=== PATIENT | female | born 1960 | race Caucasian/White ===

== ENCOUNTER 2025-06-15 12:48 | Outpatient (REF) | payer MEDICARE, SELFPAY | END 2025-06-15 12:49 | disposition home or self-care (01) | LOC: HO.HKASLDS 12:48 | PROVIDERS: PCP Physician Assistant; Visit Provider Student in an Organized Health Care Education/Training Program | DX: Z76.89 Persons encountering health services in other specified circumstances (principal); E04.9 Nontoxic goiter, unspecified; B00.9 Herpesviral infection, unspecified; Z13.1 Encounter for screening for diabetes mellitus; Z13.220 Encounter for screening for lipoid disorders; I10 Essential (primary) hypertension; L85.3 Xerosis cutis; E66.811 Obesity, class 1; I47.10 Supraventricular tachycardia, unspecified; Z01.89 Encounter for other specified special examinations; Z13.89 Encounter for screening for other disorder ==

== ENCOUNTER 2025-06-15 12:48 | Outpatient (AMB) | payer MEDICARE, SELFPAY ==
--- NOTE | 2025-06-15 13:08 | A.OFFPC_ITS ---
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 pt request LAB work. lose toe nail in right foot. gets a lot of UTI. Route Delivery Driver Required: No Accompanied by: Self / Same As Patient Allergies codeine Allergy (Mild, Verified 06/15/25 13:17) Rash Penicillins Allergy (Mild, Verified 06/15/25 13:17) Rash Tobacco use date assessed: 06/15/25 Fall risk assessment: No Falls in past year Last assessed Fall Risk: 06/15/25 Dental Screening Dental Screen Date: 06/15/25 Did you have a dental visit in the last 12 months?: No Did you have a dental problem in the last 6 months where you did not have access to dental care?: No Was dental information given to patient?: No HPI HPI Comments History of Present Illness Details History of Present Illness The patient is a 65-year-old female presenting for a physical examination and management of her goiter. Goiter: - The patient reports a large goiter in her neck, requiring evaluation with blood work and ultrasound. - She is currently taking 88 mcg of levo thyroxine but suspects the dose may be too high, causing heart palpitations. - She has a history of thyroid nodule an d declined previous intervention but now requests an ultrasound. Hypertension: - The patient has a history of hypertens ion managed with hydrochlorothiazide 25 mg daily. Supraventricular Tachycardia (SVT): - The patient experiences SVT and is man aged with metoprolol 50 mg twice daily. - She has not seen her sand sifter in a year but has an upcoming appointment. Herpes Simplex Virus Infection: - The patient reports recurrent herpes s implex virus outbreaks affecting her lips and eyes, managed with acyclovir as needed. Fungal Nail Infection: - The patient has a fungal nail infectio n treated previously with oral medication, which caused migraines, leading to discontinuation. Health Maintenance - Blood work including CBC, CMP, lipid p romelia, hemoglobin A1c, TSH, and T4 ordered. - Thyroid ultrasound requested for goite r evaluation. - Discussion on shingles vaccine, advise d due to age. Review of Systems - Endocrine: Reports large goiter, heart palpitations possibly due to levothyroxine dose. - Cardiovascular: Reports supraventricul ar tachycardia, managed with metoprolol. - Dermatological: Reports recurrent herp es simplex virus outbreaks on lips and eyes. - Musculoskeletal: Reports knee pain, hi story of carpal tunnel syndrome and ganglion cyst. - Neurological: Denies current migraines . - Gastrointestinal: Reports hemorrhoids, managed with stool softeners. - Genitourinary: Reports microscopic hem aturia. - Integumentary: Reports fungal nail inf ection, previously treated with oral medication. 10-point ROS reviewed and negative excep t as noted in HPI Allergies Medications - Levothyroxine 88 mcg daily for thyroid management - Metoprolol 50 mg twice daily for supra ventricular tachycardia - Hydrochlorothiazide 25 mg daily for hy pertension - Acyclovir as needed for herpes simplex virus outbreaks Medication History - Levothyroxine: Previously on 100 mcg, reduced due to heart palpitations and SVT. - Oral antifungal medication: Discontinu ed due to migraine side effects. Current Substance Use Substance Use History Past Medical History - Thyroid nodule - Hypertension - Supraventricular tachycardia - Carpal tunnel syndrome - Ganglion cyst of the right foot - Knee pain - Microscopic hematuria - Herpes simplex virus infection - Migraine - Hemorrhoids - Fungal nail infection Past Surgical History Family History Social History - The patient is and has been wi th her for 40 years. - Reports financial difficulties and nazario ited access to resources. - Previously worked long hours in [employer], performing physically demanding tasks. Physical Exam General: No apparent distress. Alert and oriented x 3. Head: Normocephalic, atraumatic Eyes: Pupils equal, round, and reactive to light. Extraocular movements intact Throat: No abnormalities observed. ropharynx clear. Mucus membranes moist Neck: Supple. Large goiter present. eft anterior descending artery distention. No jugular vein distention. No bruit. Cardiovascular: Regular rate and rhythm. Normal S1 and S2. No murmurs. murmurs, rubs, or gallops Lungs: Clear to auscultation bilaterally. Breath sounds equal bilaterally. No rales, ronchi, or wheezes. Abdomen: Non-tender. Non-distended. Bowel sounds auscultated. Echymosis on the left side of the abdomen. No pain on palpation. hepatosplenomegaly. No mass/rebound/guarding Extremities: No cyanosis, clubbing, or edema. No swelling of the lower extremities. lubbing, cyanosis, and edema. 2+ pulses Neuro: Central nerves II-XII grossly intact. Motor/sensory intact. Reflexes 2+. Gait normal. Skin: Warm, dry, and intact. No rash. Dry skin noted. Lac hydrants lotion recommended. Discussion Notes During the visit, I discussed the importance of evaluating the patient's goiter with a thyroid ultrasound and blood work, including TSH and T4 levels. We also addressed her concerns about the current levothyroxine dosage and potential side effects, such as heart palpitations. I recommended considering a shingles vaccin e due to her age and explained the benefits of preventing severe complications. We reviewed her medication regimen, including the need for acyclovir for herpes outbreaks and the management of hypertension and SVT with hydrochlorothiazide and metoprolol, respectively. I emphasized the importance of follow-up with her sand sifter and the need for regular health maintenance screenings. Plan 1. Goiter - Plan to perform a thyroid ultrasound a nd check TSH and T4 levels to assess the goiter and adjust levothyroxine dosage if necessary. 2. Hypertension - Continue hydrochlorothiazide 25 mg jalen ly for blood pressure management. 3. Supraventricular Tachycardia (Svt) - Continue metoprolol 50 mg twice daily and follow up with sand sifter for ongoing management. 4. Herpes Simplex Virus Infection - Prescribe acyclovir for outbreak manag ement and advise on stress reduction to prevent recurrences. 5. Fungal Nail Infection - Consider re-evaluation of oral antifun gal treatment, monitoring for side effects such as migraines. Treatment Summary Anticapatory Guidance Patient Instructions - Schedule a thyroid ultrasound and comp lete blood work as ordered. - Continue taking prescribed medications : levothyroxine, metoprolol, hydrochlorothiazide, and acyclovir as needed. - Follow up with your sand sifter as pl anned. - Consider receiving the shingles vaccin e at a local pharmacy or clinic. - Use lotion for dry skin as recommended . REPLACED BY [facility] Family History (Updated 06/15/25 @ 13:22 by Espinoza Melton MA) Father No problems noted. Mother No problems noted. Social History (Updated 06/15/25 @ 13:23 by Espinoza Melton MA) Housing: House Alcohol intake: current Alcohol intake frequency: does not drink Patient Tobacco Use Status: Never used Tobacco service: No Current occupational status: unemployed Cognitive needs: No Hearing needs: No Vision needs: Yes (rx glasses) Questionnaire PHQ-9 Over the last 2 weeks, how often have you been bothered by any of the following problems? 1. Little interest or pleasure in doing things: not at all 2. Feeling down, depressed, or hopeless: not at all 3. Trouble falling or staying asleep, or sleeping too much: not at all 4. Feeling tired or having little energy: not at all 5. Poor appetite or overeating: not at all 6. Feeling bad about yourself - or that you are a failure or have let yourself or your family down: not at all 7. Trouble concentrating on things, such as reading the newspaper or watching television: not at all 8. Moving or speaking so slowly that other people could have noticed. Or the opposite - being so fidgety or restless that you have been moving around a lot more than usual: not at all 9. Thoughts that you would be better off or of hurting yourself in some way: not at all Total score: 0 Source: Developed by Drs. Hu Jackson, Frida Bravo, Jv Monterroso and colleagues, with an educational valentina from [employer]. Thrive Questionnaire Date Thrive assessed: 06/15/25 I am a: Patient What is your living situation today?: I have a steady place to live Within the past 12 months, did the food you bought not last and you didn't have the money to get more?: Never true Within the past 12 months, did you worry whether your food would run out before you got money to buy more?: Never true Do you have trouble paying for medicines?: No Do you have trouble getting transportation to medical appointments?: No Do you have trouble paying your heating and electricity bill?: No Do you have trouble taking care of your child, family member or friend?: No Are you currently unemployed and looking for a job?: Yes Are you interested in more education?: No Please select the resources that you would like help with: None Currently or been in a relationship where the following occur: No concerns reported THRIVE Score: 0 AUDIT C Alcohol Use Questionnaire (AUDIT-C) 1. How often do you have a drink containing alcohol?: Never 3. How often do you have six or more drinks on one occasion?: Never Total Score: 0 TARA-7 AMB Questionnaire TARA-7 Date TARA - 7 assessed: 06/15/25 Feeling nervous, anxious, or on edge: 0 = Not at all Not being able to stop or control worryin = Not at all Worrying too much about different things: 0 = Not at all Trouble relaxin = Not at all Being so restless that it is hard to sit still: 0 = Not at all Becoming easily annoyed or irritable: 0 = Not at all Feeling afraid as if something awful might happen: 0 = Not at all Total TARA-7 score (0-4 normal; 5-9 mild; 10-14 moderate; 15-21 severe): 0 Source: Developed by Drs. Hu Jackson, Frida Bravo, Jv Monterroso and colleagues, with an educational valentina from [employer]. Physical exam (Primary Care) Vital Signs: Last Vital Signs Temp 97.3 F 06/15/25 13:23 Pulse 66 06/15/25 13:23 Resp 16 06/15/25 13:23 BP 156/86 H 06/15/25 13:23 Pulse Ox 97 06/15/25 13:23 Oxygen Delivery Method Room Air 06/15/25 13:23 BMI result Body Mass Index 32.6 Tobacco/Smoking Status: Tobacco use Status Tobacco use date assessed 06/15/25 06/15/25 13:14 Patient Tobacco Use Status Never used Tobacco 06/15/25 13:23 PHQ-9: PHQ-9 Score PHQ-9: Total score 0 06/15/25 13:14 Thrive Assessment: Date of Thrive Assessment Date Thrive assessed 06/15/25 06/15/25 13:14 Currently or been in a relationship where the following occur: No concerns reported Coding Level of Care Code New Pt Level 3 (52898) Diagnoses Encounter to establish care Z76.89 Goiter E04.9 Herpes simplex B00.9 Screening for diabetes mellitus Z13.1 Screening for lipoid disorders Z13.220 Primary hypertension I10 Hypertension type: primary hypertension Dry skin L85.3 Class 1 obesity E66.811 SVT (supraventricular tachycardia) I47.10 Routine lab draw Assessment & Plan Assessment & Plan (1) Encounter to establish care: Code(s): Z76.89 - Persons encountering health services in other specified circumstances (2) Goiter: Code(s): E04.9 - Nontoxic goiter, unspecified (3) Herpes simplex: Code(s): B00.9 - Herpesviral infection, unspecified (4) Screening for diabetes mellitus: Code(s): Z13.1 - Encounter for screening for diabetes mellitus (5) Screening for lipoid disorders: Code(s): Z13.220 - Encounter for screening for lipoid disorders (6) Hypertension: Code(s): I10 - Essential (primary) hypertension Qualifiers: Hypertension type: primary hypertension Qualified Code(s): I10 - Essential (primary) hypertension (7) Dry skin: Code(s): L85.3 - Xerosis cutis (8) Class 1 obesity: Code(s): E66.811 - Obesity, class 1 (9) SVT (supraventricular tachycardia): Code(s): I47.10 - Supraventricular tachycardia, unspecified (10) Routine lab draw: Code(s): Z. - Encounter for other specified special examinations Plan Orders: Orders Comprehensive Met. Panel Today - Persons encountering health services in other specified circumstances Hemoglobin A1c Today - Persons encountering health services in other specified circumstances Hepatitis B Surface Antibody Today - Persons encountering health services in other specified circumstances TSH reflex Free T4 Today - Persons encountering health services in other specified circumstances UA CC w/rflx Micro + Cult Today - Persons encountering health services in other specified circumstances US thyroid Today E04.9 - Nontoxic goiter, unspecified, Z - Persons encountering health services in other specified circumstances Complete Blood Count Auto Diff Today - Persons encountering health services in other specified circumstances Hepatitis B Surface Antigen Today . - Persons encountering health services in other specified circumstances Hepatitis C Antibody Today . - Persons encountering health services in other specified circumstances HIV Ab/Ag Today Z76.89 - Persons encountering health services in other specified circumstances Lipid Panel Today Z - Persons encountering health services in other specified circumstances Magnesium Today Z. - Persons encountering health services in other specified circumstances Microalbumin, Random (w Creat) Today Z - Persons encountering health services in other specified circumstances Vitamin D 1,25 dihydroxy Today Z - Persons encountering health services in other specified circumstances Medications: New acyclovir 200 mg PO TID PRN 30 caps 0RF herpes break out hydrochlorothiazide 25 mg PO DAILY 30 tabs 2RF ammonium lactate 5% (Lac-Hydrin Five) 1 appl topical DAILY 226 grams 2RF metoprolol tartrate 50 mg PO BID 60 tabs 2RF
[2025-06-15 13:23] VITALS: BP 156/86; PULSE 66; RESP 16; TEMP 36.3; O2SAT 97; BMI 32.6
--- OUTSIDE RECORDS SUMMARY | 2025-06-15 15:49 | XMS_ITS | Encounter Summary ---
Author Organization [facility] Address [address] [place] [address] Care Team Providers Care Program Checker Name Role Phone Connor Garcia MD Primary Care Provider [phone] Encounter Details Date Type Department Care Team (Late st Contact Info) Description 02/11/2022 Scanned Document [facility] PRIMARY CARE SCAN Primary Care, Scan Social History Tobacco Use Types Packs/Day Years Used Date Smoking Tobacco: Never Assessed Comments Unknown Sex and Gender Information Value Date Recorded Sex Assigned at Female 12/07/2023 2:42 PM EST Legal Sex Female 10:47 AM EDT Gender Identity Not on file Sexual Orientation Not on file documented as of this encounter Plan of Treatment Not on file documented as of this encounter Visit Diagnoses Not on filedocumented in this encounter Care Teams Program Checker Relationship Specialty Start Date End Date Connor Garcia MD [address] [place] [address] PCP - General Internal Medicine 02/11/22 documented as of this encounter
--- OUTSIDE RECORDS SUMMARY | 2025-06-15 15:49 | XMS_ITS | Clinical Summary ---
Author Organization [facility] Address [address] [place] [address] Care Team Providers Care Retreader Name Role Phone Connor Garcia MD Primary Care Provider [phone] Social History Tobacco Use Types Packs/Day Years Used Date Smoking Tobacco: Never Assessed Comments Unknown Sex and Gender Information Value Date Recorded Sex Assigned at Female 12/07/2023 2:42 PM EST Legal Sex Female 10:47 AM EDT Gender Identity Not on file Sexual Orientation Not on file Plan of Treatment Health Maintenance Due Date Last Done Comments Hepatitis C Virus Screening 1961 HIV Screening 1974 DTaP/Tdap/Td Vaccines (1 - Tdap) 1980 Pap Smear (Ages 21-65) 1982 Mammogram 2001 Colonoscopy 2006 Pneumococcal Vaccines 50+ (1 of 1 - PCV) 2011 Zoster (Shingles) Vaccine (1 of 2) 2011 Influenza Vaccine 05/06/2025 COVID-19 Vaccine (4 - 2024-2 6 season) 2025 09/06/2021, 02/14/2021, 01/16/2021 RSV Vaccine 60 years and older and Patients (1 - 1-dose 75+ series) 2036 Hepatitis B Vaccines Aged Out No long er eligible based on patient's age to complete this topic Insurance MEDICARE PART A & B Care Teams Retreader Relationship Specialty Start Date End Date Connor Garcia MD [address] [place] [address] PCP - General Internal Medicine 02/11/22
--- OUTSIDE RECORDS SUMMARY | 2025-06-15 15:50 | XMS_ITS | Clinical Summary ---
Author Organization [address] [place] [address] Phone Care Team Providers Care Government Services Professional Name Role Phone Connor Garcia MD Primary Care Provider [phone] Surgical History Surgery Date Site/Laterality Comments OTHER SURGICAL HISTORY PROCEDURE: [place] ENDOMETRIAL BX W/WO ENDOCERVIX BX W/O DILAT SPX HYSTERECTOMY PROCEDURE: HISTORICAL HYSTERECTOMY; COMMENT: at age 54 Medical History Medical History Date Comments HTN (hypertension) DX:HTN (hyper tension) SVT (supraventricular tachyc ardia) (CMS/HCC V24) DX:SVT (supraventricular tac hycardia) (HCC); COMMENT: metoprolol Menorrhagia DX:Menorrhagia 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:Unabl e to read or write Family History Medical History Relation Name Comments Other: alive and well Father Other: alive and well Mother Relation Name Status Comments Father Mother Social History Tobacco Use Types Packs/Day Years Used Date Smoking Tobacco: Never Smokeless Tobacco: Never Alcohol Use Standard Drinks/Week Comments No 0 (1 standard drink = 0.6 oz pur e alcohol) Comments Unknown Sex and Gender Information Value Date Recorded Sex Assigned at Female 10/19/2024 4:50 PM EST Legal Sex Female 6:33 PM EST Gender Identity Female 10/19/2024 4:50 PM EST Sexual Orientation Straight 10/19/2024 4: 50 PM EST Obstetrics History Last Filed Vital Signs Vital Sign Reading Time Taken Comments Blood Pressure 180/90 03/04/2023 8:55 AM EDT Sitting L Arm Pulse 56 03/04/2023 8:55 AM EDT Temperature - - Respiratory Rate - - Oxygen Saturation - - Inhaled Oxygen Concentration - - Weight 72.8 kg (160 lb 6.4 oz) 03/04/2023 8:55 AM EDT Height 162.6 cm (5' 4 ) 03/04/2023 8:55 AM EDT Body Mass Index 27.53 03/04/2023 8:55 AM EDT Plan of Treatment Health Maintenance Due Date Last Done Comments Breast Cancer Screening 1961 DTaP,Tdap,and Td Vaccines (1 - Tdap) 1980 Cervical Cancer Screening: P ap Smear 1982 Pneumococcal Vaccine: 50+ Ye ars (1 of 1 - PCV) 2011 Zoster Vaccines (1 of 2) 2011 Cholesterol Screening (Lipid Panel) 09/12/2022 Colorectal Cancer Screening: Stool Based Tests (FOBT/FIT) 09/12/2022 HIV Screening 09/12/2022 Hepatitis C Screening 09/12/2022 Medicare Annual Wellness Visit 09/12/2022 Social Influencers of Health Screening 09/12/2022 Hypertension/CHF/CAD Annual BMP Blood Test 09/15/2022 Depression Screening 10/06/2024 COVID-19 Vaccine (1 - 2023-2 5 season) 2025 Influenza Vaccine (#1) 2025 RSV Immunization Adult Patie nts (1 - 1-dose 75+ series) 2036 HIB Vaccines Aged Out No longer eligi ble based on patient's age to complete this topic HPV Vaccines Aged Out No longer eligi ble based on patient's age to complete this topic Hepatitis A Vaccines Aged Out No long er eligible based on patient's age to complete this topic Hepatitis B Vaccines Aged Out No long er eligible based on patient's age to complete this topic IPV Vaccines Aged Out No longer eligi ble based on patient's age to complete this topic MMR Vaccines Aged Out No longer eligi ble based on patient's age to complete this topic Meningococcal ACWY Vaccine Aged Out N o longer eligible based on patient's age to complete this topic Meningococcal B Vaccine Aged Out No l onger eligible based on patient's age to complete this topic RSV Immunization Patients Un chao 20 months Aged Out No longer eligible b ased on patient's age to complete this topic Varicella Vaccines Aged Out No longer eligible based on patient's age to complete this topic Insurance MEDICARE Care Teams Government Services Professional Relationship Specialty Start Date End Date Connor Garcia MD [address] [place] [address] PCP - General 07/19/24
--- OUTSIDE RECORDS SUMMARY | 2025-06-15 15:50 | XMS_ITS | Clinical Summary ---
Author Organization [facility] Address [address] [place] [address] Care Team Providers Care Vest Maker Name Role Phone Connor Garcia MD Primary Care Provider [phone] Allergies Active Allergy Reactions Criticality Noted Date Comments Ampicillin Rash Low 10/20/2020 Codeine Rash Low 10/20/2020 Penicillins Rash Low 10/20/2020 Medications Medication Sig Dispensed Refills Start Date End Date Status lisinopril (PRINIVIL,ZESTRIL) tablet 5 mg Take 5 mg by mouth daily. 0 Active hydroCHLOROthiazide (HYDRODIURIL) tablet 25 mg Take 25 mg by mouth daily. 0 Active metoprolol succinate (TOPROL-XL) 24 hr tablet 50 mg Take by mouth daily. 0 Active cyclobenzaprine (FLEXERIL) 5 MG tablet 1-2 tabs PO QHS PRN for muscle spasm 14 tablet 0 11/07/2020 Active meloxicam (MOBIC) 7.5 MG tablet Take 1 tablet (7.5 mg total) by mouth daily. With food 30 tablet 0 11/13/2020 Active Active Problems Problem Noted Date Diagnosed Date Acute pain of right shoulder 11/13/2020 Right arm pain 10/20/2020 Primary osteoarthritis of right knee 10/20/2020 Social History Tobacco Use Types Packs/Day Years Used Date Smoking Tobacco: Never Smokeless Tobacco: Never Alcohol Use Standard Drinks/Week Comments No 0 (1 standard drink = 0.6 oz pur e alcohol) Sex and Gender Information Value Date Recorded Sex Assigned at Female 09/24/2018 3:16 PM EST Gender Identity Female 09/24/2018 3:16 PM EST Sexual Orientation Not on file Job Start Date Occupation Industry Not on file Not on file Not on file Last Filed Vital Signs Vital Sign Reading Time Taken Comments Blood Pressure - - Pulse - - Temperature 35.9 C (96.7 F) 12/04/2020 11:21 AM EST Respiratory Rate - - Oxygen Saturation - - Inhaled Oxygen Concentration - - Weight 74.8 kg (165 lb) 12/04/2020 11:21 AM EST Height 162.6 cm (5' 4 ) 12/04/2020 11:21 AM EST Body Mass Index 28.32 12/04/2020 11:21 AM EST Plan of Treatment Health Maintenance Due Date Last Done Comments Hepatitis C Screening 1961 COVID-19 Vaccine (#1) 1961 Depression Screening 1973 Preventative Health Evaluation 1979 Cervical Cancer Screening (Pap Smear) 1982 Colon Cancer Screening (Colonoscopy) 2006 Breast Cancer Screening (Mammogram) 2011 Shingrix-Zoster Vaccine (1 of 2) 2011 DTap / Tdap / Td (1 - Tdap) 11/03/2018 11/02/2018 BMI Counseling 12/04/2021 12/04/2020, 02/0 05/2021, 10/26/2020, Additional history exists Influenza Vaccine (#1) 2025 Pneumococcal Vaccine (1 of 1 - PCV) 2026 RSV Adult > 60+ Yrs or (1 - 1-dose 75+ series) 2036 Hepatitis B Vaccines Aged Out No long er eligible based on patient's age to complete this topic Pneumococcal Vaccine Aged Out No long er eligible based on patient's age to complete this topic RSV Ped < 20 months Aged Out No longe r eligible based on patient's age to complete this topic Advance Directives For more information, please contact: [phone] Documents on File Type Date Recorded Patient Gold Leaf Printer Expl anation Advance Directive and Living Will 11/02/2020 12:13 PM Care Teams Vest Maker Relationship Specialty Start Date End Date Connor Garcia MD [address] [place] [address] PCP - General Internal Medicine 09/24/18
--- OUTSIDE RECORDS SUMMARY | 2025-06-15 15:50 | XMS_ITS ---
Author Name [facility] Organization Unknown History of Medication Use Medication Directions Dispensed Refills Start Date End Date Stat us hydroCHLOROthiazide (HYDRODIURIL) tablet 25 mg Take 25 mg by mouth daily. active lisinopril (PRINIVIL,ZESTRIL) tablet 5 mg Take 5 mg by mouth daily. active metoprolol succinate (TOPROL-XL) 24 hr tablet 50 mg Take by mouth daily. active Allergies Allergen Reaction Severity Comment Documented Date Source Statu s PENICILLINS RASH 10/20/2020 [facility] active AMPICILLIN RASH [facility] CODEINE RASH [facility] Problems Problem Status Onset Date Problem Type Date of Resolution Source Localized swelling of both lower extremities active EncounterDiagnosisAct [facility] Acute pain of right shoulder active 2020-11-13 ProblemAct [facility] Primary osteoarthritis of right knee active 2020-10-20 ProblemAct [facility] Leg pain, left active EncounterDiagnosisAct [facility] Right arm pain active 2020-10-20 ProblemAct [facility] Encounters Encounter Type Encounter Reason Primary Diagnosis Location Date Ambulatory [facility] 06/13/2025 Ambulatory [facility] 06/13/2025 Ambulatory [facility] 01/18/2025 Ambulatory Hematuria, unspecified Hematuria, unspecified [facility] 07/29/2024 Ambulatory Hematuria, unspecified Hematuria, unspecified [facility] 07/29/2024 Ambulatory Other specified soft tissue disorders Other specified soft tissue disorders [facility] 07/29/2024 Ambulatory Other specified soft tissue disorders Other specified soft tissue disorders [facility] 07/29/2024 Ambulatory Hematuria, unspecified Hematuria, unspecified [facility] 07/29/2024 Ambulatory Hematuria, unspecified Hematuria, unspecified [facility] 07/29/2024 Ambulatory Synovial cyst of popliteal space (Dong), left knee Synovial cyst of popliteal space (Dong), left knee [facility] 01/08/2024 Care Team Organization Name Specialty Phone Email Start Date End Da te [facility] ARTEM, Primary Care 08/13/2024 [facility] ARTEM Primary Care 01/11 [facility] 01/08/2024 04/19/2025 [facility] CITLALY MCGILL, Primary Care 12/05/2023 [facility] CITLALY SHAH, Primary Care
== END 2025-06-15 15:17 | disposition home or self-care (01) ==
PROVIDERS: PCP Student in an Organized Health Care Education/Training Program; Visit Provider Student in an Organized Health Care Education/Training Program
DX: E04.9 Nontoxic goiter, unspecified (principal); B00.9 Herpesviral infection, unspecified; L85.3 Xerosis cutis; I47.10 Supraventricular tachycardia, unspecified; E66.811 Obesity, class 1; Z68.32 Body mass index [BMI] 32.0-32.9, adult

== ENCOUNTER 2025-06-15 14:37 | Outpatient (REF) | payer MEDICARE, SELFPAY ==
[2025-06-15 18:15] LABS: MANUAL DIFF FLAG NO
[2025-06-15 18:38] LABS: Hematocrit 38.8 % (37.0-47.0); Hemoglobin 13.2 g/dl (12.0-16.0); Imm Gran Abs Auto 0.02 X10*3/uL (0.00-0.03); Imm Gran Pct Auto 0.3 % (0.0-0.4); Lymphocytes Absolute Auto 3.1 X10*3/uL (1.2-4.9); Mean Corpuscular HGB Conc 34.0 g/dl (31.0-35.0); Mean Corpuscular Hemoglobin 29.3 pg (27.0-33.0); Mean Corpuscular Volume 86.2 fL (80.0-98.0); NRBC Abs Auto 0.000 X10*3/uL (0.0-0.012); NRBC Pct Auto 0.0 /100WBC (0.0-0.2); Platelet Count 217 X10*3/uL (160-400); Red Blood Count 4.50 X10*6/uL (4.20-5.50); White Blood Count 6.5 X10*3/uL (4.8-10.8)
[2025-06-15 18:40] LABS: Appearance Urine Clear; Glucose Urine UA Negative (Negative); PH 6.0 (5.0-9.0); Specific Gravity - Urine 1.015 (1.005-1.025)
[2025-06-15 18:49] LABS: Alanine Aminotransferase 23 U/L (0-31); Albumin Level 4.3 g/dL (3.5-5.0); Alkaline Phosphatase 58 U/L (39-117); Anion Gap 12 (12-20); Aspartate Amino Transferase 27 U/L (5-31); Blood Urea Nitrogen 12 mg/dL (9-16); Calcium 9.0 mg/dL (8.4-10.2); Carbon Dioxide 28 mmol/L (22-29); Chloride 105 mmol/L (96-108); Cholesterol 228 mg/dL (<200); Estimated Glomerular Filt Rate > 60; HDL Cholesterol 60 mg/dL (>40); Magnesium 2.2 mg/dL (1.6-2.6); Potassium 3.7 mmol/L (3.3-5.1); Sodium 141 mmol/L (135-145); Total Protein 7.4 g/dL (6.5-8.0); Triglycerides 89 mg/dL (<150)
[2025-06-15 19:56] LABS: Free T4 (Free Thyroxine) 1.40 ng/dL (0.71-1.85)
[2025-06-16 07:32] LABS: Hemoglobin A1C 139.6487 umol/L; Total Hemoglobin (HGBA1C) 3406.7187 umol/L
[2025-06-16 08:56] LABS: HBS Num1 0.00 mIU/mL (0-7.99); HBsAGNum1 0.47 S/CO (0.00-0.99); HIV Num 1 0.05 S/CO (0.00-0.99); Hepatitis B Surface Antigen Negative (Negative); ~HepC Num1 0.09 S/CO (0.00-0.79); ~Hepatitis B Surface Antibody NONREACTIVE (Nonreactive); ~Hepatitis C Antibody Nonreactive (Nonreactive)
[2025-06-19 09:39] LABS: VITAMIN D (1,25 OH) D3 47 pg/mL; Vit D (1,25-Dihydroxy) Total 47 pg/mL (18-72); Vitamin D (1,25 OH) D2 <8 pg/mL
== END 2025-06-15 14:38 | disposition home or self-care (01) ==
LOC: HO.HKASLDS 14:37
PROVIDERS: Visit Provider Student in an Organized Health Care Education/Training Program
DX: Z11.4 Encounter for screening for human immunodeficiency virus [HIV] (principal); Z76.89 Persons encountering health services in other specified circumstances; Z13.1 Encounter for screening for diabetes mellitus; Z13.6 Encounter for screening for cardiovascular disorders; Z13.29 Encounter for screening for other suspected endocrine disorder; Z13.21 Encounter for screening for nutritional disorder
CPT/HCPCS: 36415; 80053; 80061; 81003; 82570; 82652; 83036; 83735; 84439; 84443; 85025; 86706; 86803; 87340; 87389

== ENCOUNTER 2025-07-11 09:17 | Outpatient (AMB) | payer MEDICARE, SELFPAY ==
[2025-07-11 09:21] VITALS: BP 156/76; PULSE 64; RESP 16; TEMP 36.4; O2SAT 98; BMI 31.4
--- NOTE | 2025-07-11 09:21 | A.OFFPC_ITS ---
Vital Signs 07/11/25 09:21 Height 4 ft 9.09 in Weight 145 lb 6 oz BMI 31.4 BP 156/76 H Blood Pressure Location Lt brachial Position Sitting Respiration 16 Pulse 64 Pulse Source Pulse Oximeter Temp 97.5 F Temp Source Oral Pulse Oximetry (%) 98 Oxygen Delivery Method Room Air Intake Visit Reasons: follow up u/s -patient req this day Intake Note: pt medication request, physical, lump on neck. pt request LAB work. lose toe nail in right foot. gets a lot of UTI. Supervisor Riprap Placing Required: No Accompanied by: Self / Same As Patient Allergies codeine Allergy (Mild, Verified 06/15/25 13:17) Rash Penicillins Allergy (Mild, Verified 06/15/25 13:17) Rash Tobacco use date assessed: 06/15/25 Fall risk assessment: No Falls in past year Last assessed Fall Risk: 06/15/25 Dental Screening Dental Screen Date: 06/15/25 Did you have a dental visit in the last 12 months?: No Did you have a dental problem in the last 6 months where you did not have access to dental care?: No Was dental information given to patient?: No HPI HPI Comments History of Present Illness Details History of Present Illness The patient is a 65-year-old female presenting with management of thyroid issues, hypertension, hyperlipidemia, and a urinary tract infection. Supraventricular Tachycardia (SVT): - The patient has a history of supravent ricular tachycardia, which is managed with metoprolol to control heart rate. Thyroid Nodule: - The patient has a thyroid nodule and i s awaiting an ultrasound scheduled for next week. Subclinical Hyperthyroidism: - The patient is diagnosed with subclini evan hyperthyroidism, indicated by a low TSH level of 0.04 with normal free T4. - She is currently on 88 mcg of levothyr oxine, which will be reduced to 75 mcg. Hypertension: - The patient has elevated blood pressur e readings, with recent measurements of 156/86 and 156/76. - She is currently on hydrochlorothiazid e and metoprolol for management. Hyperlipidemia: - The patient's total cholesterol is 228 mg/dL, and LDL is 151 mg/dL, indicating hyperlipidemia. - She has been advised to see a [facility] for lifestyle modifications. Urinary Tract Infection: - The patient reports sharp pains during urination, starting at 3 AM, indicative of a urinary tract infection. - She has a history of recurrent urinary tract infections, possibly related to hot tub use. Kidney Stones: - The patient has been informed by her O BGYN about the presence of kidney stones, referred to as crystals. Review of Systems - Cardiovascular: Reports elevated blood pressure readings. Denies chest pain or palpitations. - Endocrine: Reports low TSH levels. Den ies symptoms of hyperthyroidism. - Genitourinary: Reports sharp pains dur ing urination and pressure. Denies hematuria. 10-point ROS reviewed and negative excep t as noted in HPI Past Medical History - History of supraventricular tachycardi a managed with metoprolol. - History of thyroid nodule with prior u ltrasound 10 years ago. - History of recurrent urinary tract inf ections. Health Maintenance - Referral to a fretted string instrument repairer for lifesty le modifications due to hyperlipidemia. - Monitoring of blood pressure at home w ith a log for two weeks. Physical Exam General: Well-appearing, in no acute distress. Vital signs: Blood pressure elevated at 156/76 today. HEENT: Normocephalic, atraumatic. PERRLA, EOMI. Conjunctiva clear, sclera anicteric. Oropharynx clear, mucous membranes moist. TMs intact bilaterally. Neck: Supple, no lymphadenopathy, no thyromegaly, no JVD or carotid bruits. Cardiovascular: RRR, normal S1/S2, no murmurs, rubs, or gallops. Peripheral pulses 2+ and symmetric. No edema. Respiratory: Lungs clear to auscultation bilaterally, no wheezes, rales, or rhonchi. Normal effort. Abdomen: Soft, non-tender, non-distended. Normoactive bowel sounds. No hepatosplenomegaly, no masses. MSK: Full range of motion, no joint swelling or deformity. Normal gait. Skin: Warm, dry, intact. No rashes, lesions, or pallor. Neuro: Alert and oriented x3. Cranial nerves II-XII intact. Strength 5/5 throughout. Sensation intact. Reflexes 2+ symmetric. Normal coordination and gait. Psych: Appropriate mood and affect. Normal judgment and insight. Plan 1. Supraventricular Tachycardia (Svt) - Continue metoprolol for heart rate con trol. 2. Thyroid Nodule - Schedule and complete thyroid ultrasou nd next week. 3. Subclinical Hyperthyroidism - Reduce levothyroxine dosage to 75 mcg and repeat labs in six months. 4. Hypertension - Monitor blood pressure at home for two weeks and maintain a log. 5. Hyperlipidemia - Refer to a fretted string instrument repairer for dietary an d lifestyle modifications. 6. Urinary Tract Infection - Prescribe nitrofurantoin for five days and perform urinalysis. 7. Kidney Stones - Monitor for symptoms and manage conser vatively unless symptoms worsen. Discussion Notes I discussed with the patient the management of her subclinical hyperthyroidism, including reducing levothyroxine dosage and repeating labs in six months. We also talked about her elevated cholesterol levels and the importance of lifestyle modifications, referring her to a fretted string instrument repairer. For her urinary tract infection, I prescribed nitrofurantoin and advised a urinalysis. We agreed to monitor her blood pressure at home and maintain a log for two weeks. Patient was informed and verbally consented to the use of an ambient scribe for clinic note documentation during this visit. Patient Instructions - Take nitrofurantoin as prescribed, twi ce daily for five days. - Monitor blood pressure at home twice d aily and record in the provided log. - Attend the scheduled thyroid ultrasoun d next week. - Follow up with a fretted string instrument repairer for diet jose advice. Total time spent caring for the patient today was 30 minutes. This includes time spent before the visit reviewing the chart, time spent documenting, and time spent reviewing laboratory results, medications, performing a medically necessary evaluation, counseling on diagnoses, care coordination, ordering appropriate tests, ordering appropriate medications, reporting test results with the patient. [facility] Medical History (Updated 07/11/25 @ 09:41 by Aneesh Saldana MD) Dyslipidemia Family History Father No problems noted. Mother No problems noted. Social History Housing: House Alcohol intake: current Alcohol intake frequency: does not drink Patient Tobacco Use Status: Never used Tobacco service: No Current occupational status: unemployed Cognitive needs: No Hearing needs: No Vision needs: Yes (rx glasses) Questionnaire PHQ-9 Over the last 2 weeks, how often have you been bothered by any of the following problems? 1. Little interest or pleasure in doing things: not at all 2. Feeling down, depressed, or hopeless: not at all 3. Trouble falling or staying asleep, or sleeping too much: not at all 4. Feeling tired or having little energy: not at all 5. Poor appetite or overeating: not at all 6. Feeling bad about yourself - or that you are a failure or have let yourself or your family down: not at all 7. Trouble concentrating on things, such as reading the newspaper or watching television: not at all 8. Moving or speaking so slowly that other people could have noticed. Or the opposite - being so fidgety or restless that you have been moving around a lot more than usual: not at all 9. Thoughts that you would be better off or of hurting yourself in some way: not at all Total score: 0 Source: Developed by Drs. Hu Jackson, Frida Bravo, Jv Monterroso and colleagues, with an educational valentina from [employer]. Thrive Questionnaire Date Thrive assessed: 06/15/25 I am a: Patient What is your living situation today?: I have a steady place to live Within the past 12 months, did the food you bought not last and you didn't have the money to get more?: Never true Within the past 12 months, did you worry whether your food would run out before you got money to buy more?: Never true Do you have trouble paying for medicines?: No Do you have trouble getting transportation to medical appointments?: No Do you have trouble paying your heating and electricity bill?: No Do you have trouble taking care of your child, family member or friend?: No Are you currently unemployed and looking for a job?: Yes Are you interested in more education?: No Please select the resources that you would like help with: None Currently or been in a relationship where the following occur: No concerns reported THRIVE Score: 0 AUDIT C Alcohol Use Questionnaire (AUDIT-C) 1. How often do you have a drink containing alcohol?: Never 3. How often do you have six or more drinks on one occasion?: Never Total Score: 0 TARA-7 AMB Questionnaire TARA-7 Date TARA - 7 assessed: 06/15/25 Feeling nervous, anxious, or on edge: 0 = Not at all Not being able to stop or control worryin = Not at all Worrying too much about different things: 0 = Not at all Trouble relaxin = Not at all Being so restless that it is hard to sit still: 0 = Not at all Becoming easily annoyed or irritable: 0 = Not at all Feeling afraid as if something awful might happen: 0 = Not at all Total TARA-7 score (0-4 normal; 5-9 mild; 10-14 moderate; 15-21 severe): 0 Source: Developed by Drs. Hu Jackson, Frida Bravo, Jv Monterroso and colleagues, with an educational valentina from [employer]. Physical exam (Primary Care) Vital Signs: Last Vital Signs Temp 97.5 F 07/11/25 09:21 Pulse 64 07/11/25 09:21 Resp 16 07/11/25 09:21 BP 156/76 H 07/11/25 09:21 Pulse Ox 98 07/11/25 09:21 Oxygen Delivery Method Room Air 07/11/25 09:21 BMI result Body Mass Index 31.4 Tobacco/Smoking Status: Tobacco use Status Tobacco use date assessed 06/15/25 07/11/25 09:21 Patient Tobacco Use Status Never used Tobacco 07/11/25 09:21 PHQ-9: PHQ-9 Score PHQ-9: Total score 0 07/11/25 09:28 Thrive Assessment: Date of Thrive Assessment Date Thrive assessed 06/15/25 07/11/25 09:21 Currently or been in a relationship where the following occur: No concerns reported Coding Level of Care Code Est Pt Level 4 (23504) Diagnoses Subclinical hyperthyroidism E05.90 Hyperlipidemia E78.5 Elevated blood pressure reading without diagnosis of hypertension R03.0 Supraventricular tachycardia I47.10 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; E66.1 Thyroid nodule E04.1 Hypertension I10 Urinary tract infection N39.0 Dysuria R30.0 Hx of renal calculi Z87.442 Assessment & Plan Assessment & Plan (1) Subclinical hyperthyroidism: Code(s): E05.90 - Thyrotoxicosis, unspecified without thyrotoxic crisis or storm (2) Hyperlipidemia: Code(s): E78.5 - Hyperlipidemia, unspecified (3) Elevated blood pressure reading without diagnosis of hypertension: Code(s): R03.0 - Elevated blood-pressure reading, without diagnosis of hypertension (4) Supraventricular tachycardia: Code(s): I47.10 - Supraventricular tachycardia, unspecified (5) 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: Code(s): E66.811 - Obesity, class 1; E66.1 - Drug-induced obesity (6) Thyroid nodule: Code(s): E04.1 - Nontoxic single thyroid nodule (7) Hypertension: Code(s): I10 - Essential (primary) hypertension (8) Urinary tract infection: Code(s): N39.0 - Urinary tract infection, site not specified (9) Dysuria: Code(s): R30.0 - Dysuria (10) Hx of renal calculi: Code(s): Z87.442 - Personal history of urinary calculi Plan Orders: Orders UA CC w/rflx Micro + Cult Today R30.0 - Dysuria Referrals Nurse Navigator Referral E66.1 - Drug-induced obesity, E66.811 - Obesity, class 1, E78.5 - Hyperlipidemia, unspecified Medications: New nitrofurantoin macrocrystal must administer with a meal/food 100 mg PO Q12H 10 caps 0RF levothyroxine 75 mcg PO DAILY 90 caps 0RF
--- OUTSIDE RECORDS SUMMARY | 2025-07-11 10:29 | XMS_ITS | Clinical Summary ---
Author Organization [facility] Address [address] [place] [address] Care Team Providers Care Medical Accounting Clerk Name Role Phone Connor Garcia MD Primary Care Provider [phone] Social History Tobacco Use Types Packs/Day Years [...] MEDICARE PART A & B Care Teams Medical Accounting Clerk Relationship Specialty Start Date End Date Connor Garcia MD [address] [place] [address] PCP - General Internal Medicine 02/11/22
--- OUTSIDE RECORDS SUMMARY | 2025-07-11 10:29 | XMS_ITS | Clinical Summary ---
Author Organization [address] [place] [address] Phone Care Team Providers Care School Bus Driver/Custodian Name Role Phone Connor Garcia MD Primary Care Provider [phone] Surgical History Surgery Date Site/Laterality Comments OTHER SURGICAL HISTORY PROCEDURE: VT ENDOMETRIAL BX W/WO ENDOCERVIX BX W/O DILAT [...] 03/04/2023 8:55 AM EDT Plan of Treatment Upcoming Encounters Date Type Department Care Team (Late st Contact Info) Description 07/22/2025 3:15 PM EDT Appointment [facility] [place] [address] [place] [phone] Health Maintenance Due Date Last Done Comments [...] complete this topic Insurance MEDICARE Care Teams School Bus Driver/Custodian Relationship Specialty Start Date End Date Connor Garcia MD [address] [place] [phone] PCP - General 07/19/24
--- OUTSIDE RECORDS SUMMARY | 2025-07-11 10:29 | XMS_ITS | Clinical Summary ---
Author Organization [facility] Address [address] [place] [address] Care Team Providers Care Fitness Center Attendant Name Role Phone Connor Garcia MD Primary Care Provider [phone] Allergies Active Allergy Reactions Criticality Noted Date [...] Advance Directives For more information, please contact: [phone] Documents on File Type Date Recorded Patient Client Consultant Expl anation Advance Directive and Living Will 11/02/2020 12:13 PM Care Teams Fitness Center Attendant Relationship Specialty Start Date End Date Connor Garcia MD [address] [place] [address] PCP - General Internal Medicine 09/24/18
--- OUTSIDE RECORDS SUMMARY | 2025-07-11 10:29 | XMS_ITS | Encounter Summary ---
Author Organization [facility] Address [address] [place] [address] Care Team Providers Care Dry Cleaning Checker Name Role Phone Connor Garcia MD Primary Care Provider [phone] Encounter Details Date Type Department Care Team (Late st Contact Info) Description 02/11/2022 Scanned Document [facility] PRIMARY [facility]ARE SCAN Primary Care, Scan Social [...] on filedocumented in this encounter Care Teams Dry Cleaning Checker Relationship Specialty Start Date End Date Connor Garcia MD [address] [place] [address] PCP - General Internal Medicine 02/11/22 documented as of this encounter
== END 2025-07-11 10:00 | disposition home or self-care (01) ==
LOC: HO.HMCFMS 09:17
PROVIDERS: PCP Physician Assistant; Visit Provider Student in an Organized Health Care Education/Training Program
DX: E05.90 Thyrotoxicosis, unspecified without thyrotoxic crisis or storm (principal); E78.5 Hyperlipidemia, unspecified; R03.0 Elevated blood-pressure reading, without diagnosis of hypertension; I47.10 Supraventricular tachycardia, unspecified; E66.811 Obesity, class 1; E66.1 Drug-induced obesity; E04.1 Nontoxic single thyroid nodule; I10 Essential (primary) hypertension; N39.0 Urinary tract infection, site not specified; R30.0 Dysuria; Z87.442 Personal history of urinary calculi

== ENCOUNTER 2025-07-11 09:58 | Outpatient (REF) | payer MEDICARE, SELFPAY ==
[2025-07-11 13:41] LABS: Appearance Urine Clear; Glucose Urine UA Negative (Negative); PH 6.5 (5.0-9.0); Specific Gravity - Urine 1.010 (1.005-1.025)
== END 2025-07-11 09:59 | disposition home or self-care (01) ==
LOC: HO.HKASLDS 09:58
PROVIDERS: PCP Student in an Organized Health Care Education/Training Program; Visit Provider Student in an Organized Health Care Education/Training Program
DX: E05.90 Thyrotoxicosis, unspecified without thyrotoxic crisis or storm (principal); E78.5 Hyperlipidemia, unspecified; R03.0 Elevated blood-pressure reading, without diagnosis of hypertension; I47.10 Supraventricular tachycardia, unspecified; E66.811 Obesity, class 1; E66.1 Drug-induced obesity; Z68.31 Body mass index [BMI] 31.0-31.9, adult; E04.1 Nontoxic single thyroid nodule; I10 Essential (primary) hypertension; N39.0 Urinary tract infection, site not specified; R30.0 Dysuria; Z87.442 Personal history of urinary calculi
CPT/HCPCS: 81003; 99212